=== PATIENT | male | born 1970 | race Caucasian/White ===

== ENCOUNTER 2017-08-04 10:31 | Emergency (ER) | payer MEDICAID ==
[~2017-08-04] VITALS: Ht 167.6 cm; Wt 72.2 kg
[2017-08-04] MEDS ORDERED: CYCL-1 PO (12:28)
[2017-08-04] MEDS ORDERED: HYDR-3965 PO (12:28)
[2017-08-04] MEDS ORDERED: triamcinolone acetonide 40mg/ml inj IM ONE (12:30)
[2017-08-04] MEDS ORDERED: ketorolac trometh inj. 60 MG/2 ML VIAL IM ONE (12:30)
[2017-08-04 12:43] VITALS: BP 104/62
== END 2017-08-04 12:44 | disposition home or self-care (01) ==
LOC: ER 10:34
DX: G57.00 Lesion of sciatic nerve, unspecified lower limb (principal)
CPT/HCPCS: 96372; 99284; J1885; J3301

== ENCOUNTER 2019-01-02 20:30 | Emergency (ER) | payer MEDICAID ==
[~2019-01-02] VITALS: Ht 170.2 cm; Wt 75.0 kg
[~2019-01-02 20:30] MED LIST: CYCL-1 PO
[2019-01-02 20:44] VITALS: BP 143/98
== END 2019-01-02 21:59 | disposition left against medical advice (07) ==
LOC: ER 20:31
DX: K92.1 Melena (principal); Z76.0 Encounter for issue of repeat prescription
CPT/HCPCS: 99281